=== PATIENT | female | born 1960 | race African-American/Black ===

== ENCOUNTER 2020-01-05 14:01 | IRF | payer MEDICARE, SELFPAY ==
--- NOTE | 2020-01-05 14:52 | ADMGEN ---
This patient, Nick Baker, was admitted to [facility] Room 225-02. Patient/family oriented to hospital policies and general routines including ID bracelet, bed and alarms, visiting hours, pain management, procedures, bathroom and other care routines, personal items, smoking policy, room service/diet, and visiting hours. Valuables list has been completed. Information on how to activate the Rapid Response Team has been discussed. Patient/Family are encouraged to report perceived risks to care and to ask questions if they do not understand what they are told or what they should do.
[2020-01-05 15:25] VITALS: BMI 23.1
[2020-01-05] MEDS: LACTULOSE 20 GM/30 ML UDC 30 GM PO (20:22)
[2020-01-05] MEDS: ATORVASTATIN 40 MG TABLET PO (20:27)
[2020-01-05] MEDS: MEGESTROL ACETATE (*CHEMO) 40 MG TABLET PO (20:28)
[2020-01-05] MEDS: SENNA/DOCUSATE SODIUM TABLET 1 TAB PO (20:28)
[2020-01-05 20:31] VITALS: PULSE 80
[2020-01-05] MEDS: METOPROLOL TARTRATE 25 MG TABLET PO (20:31)
[2020-01-05] MEDS: MIRTAZAPINE 15 MG TABLET PO (20:31)
[2020-01-05] MEDS: MELATONIN 5 MG TABLET PO (20:34)
[2020-01-05 22:00] VITALS: BP 130/53; PULSE 87; RESP 18; TEMP 37.2; O2SAT 97
[2020-01-06 05:14] LABS: Basophils Percent Auto 0.3 % (0.2-1.2); Eosinophils Absolute Auto 0.3 K/mm3 (0-0.3); Eosinophils Percent Auto 2.1 % (0-4.4); Hematocrit 40.3 % (37.0-47.0); Hemoglobin 13.2 g/dL (12.0-15.0); Immature Granulocyte Absolute 0.12 K/mm3 (0.00-0.031); Lymphocytes Absolute Auto 2.91 K/mm3 (0.9-3.2); Lymphocytes Percent Auto 23.2 % (18.3-44.2); Mean Corpuscular HGB Conc 32.8 g/dl (32-36); Mean Corpuscular Hemoglobin 29.3 pg (26-34); Mean Corpuscular Volume 89.4 fl (80-100); Mean Platelet Volume 10.1 fl (7.4-10.4); Monocytes Percent Auto 7.7 % (2.6-8.5); Neutrophils Absolute Auto 8.2 K/mm3 (1.3-6.7); Neutrophils Percent Auto 65.7 % (45.5-73.1); Platelet Count Result 327 k/mm3 (150-375); Red Blood Count 4.51 M/mm3 (4.2-5.4); Red Cell Distribution Width 13.8 % (11.5-14.5); White Blood Count 12.5 K/mm3 (4.5-10.0)
[2020-01-06 05:23] LABS: Blood Urea Nitrogen 12 mg/dL (7-17); Calcium 10.1 mg/dL (8.4-10.2); Carbon Dioxide 27 mmol/L (22-30); Chloride 101 mmol/L (98-107); Estimated CRCL calculation 50 ml/min; Estimated Glomerular Filt Rate > 60; Glucose 112 mg/dL (65-105); Potassium 4.5 mmol/L (3.4-5.0); Sodium 140 mmol/L (137-145)
[2020-01-06 06:00] VITALS: BP 118/56; PULSE 86; RESP 18; TEMP 36.6; O2SAT 99
[2020-01-06] MEDS: MEGESTROL ACETATE (*CHEMO) 40 MG TABLET PO ×2 (09:18→18:16)
[2020-01-06] MEDS: lisinopriL 20 MG TABLET PO (09:18)
[2020-01-06 09:19] VITALS: PULSE 84
[2020-01-06] MEDS: METOPROLOL TARTRATE 25 MG TABLET PO ×2 (09:19→20:36)
[2020-01-06] MEDS: PANTOPRAZOLE 40 MG TABLET PO ×2 (09:21→20:37)
[2020-01-06] MEDS: NICOTINE (*PBKC) 7 MG PATCH 1 PATCH TOPICAL (09:27)
--- NOTE | 2020-01-06 13:00 | WPDREHABHP ---
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 The patient is a 53-year-old right-handed Afro [place] woman with a past medical history of hypertension, hyperlipidemia, coronary artery disease, COPD, prior history of stroke and current smoker who presented to [facility] on December 31, 2019 complaining of a persistent headache for about 10 days and worsening left-sided weakness. 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 Neurology reviewed imaging and disagreed with Radiology reading and possible malignancy in full that it was more likely luxury perfusion. CT of the chest abdomen and the pelvis was obtained in due diligence and was negative for malignancy. Carotid ultrasound demonstrated severe hypoechoic feeling at endarterectomy site with ulcer present and heterogeneous plaque. Vascular surgery was consulted and is in managing her anticoagulation. Repeat head CT showed New hemorrhage as so she was not a candidate for anticoagulation for the carotid thrombus. the plan is for a carotid endarterectomy T in 6 to 8 weeks. She passed a swallowing study is on regular diet with thin liquids. Physical examination continues to reveal left-sided weakness balance impairment decreased loss motor controlled and decreased safety awareness Therapy was initiated at the acute care facility and the patient transferred to us from [facility] on DecemberJuly 17, 2020 on FALLS OR SURGERIES: The patient has had no major surgeries in the 100 days prior to admission. They had falls in the past year. They had no falls with injury in the past year. PAST MEDICAL HISTORY: arthritis hypertension is stroke coronary artery disease PAST SURGICAL HISTORY: abdominal surgery, ovarian cyst drain, bilateral carotid endarterectomy. SOCIAL HISTORY: The patient lives independently in a 1 level apartment with 4 steps down to enter. She was independent with a quad cane prior to this. Her daughter was present for the interview and the patient would like to be able to return home with home health services. She does have family available if needed. She has had several falls but no major surgery in the last 100 days FAMILY HISTORY: probably positive for hyper hypertension coronary artery disease and possibly diabetes PRIOR LEVEL OF FUNCTION: Eating was INDEPENDENT Oral Care was INDEPENDENT Toileting Hygiene was INDEPENDENT Shower/Bathing was INDEPENDENT Upper Body Dressing was INDEPENDENT Lower Body Dressing was INDEPENDENT Donning/[place] Footwear was INDEPENDENT Rolling Left and Right was INDEPENDENT Sit to Lying was INDEPENDENT Lying to Sitting was INDEPENDENT Sit to Stand was INDEPENDENT Bed to Chair Transfers was INDEPENDENT Toilet Transfers was INDEPENDENT Walking was INDEPENDENT 750 feet with quad cane Wheelchair Mobility was NOT APPLICABLE PRIOR TO ADMISSION Stairs were INDEPENDENT CURRENT LEVEL OF FUNCTION: Eating was SET UP ONLY Oral Care was supervision or touch assistance Toileting Hygiene was partial or moderate assistance Shower/Bathing was partial or moderate assistance Upper Body Dressing was partial or moderate assistance Lower Body Dressing was partial or more assistance Donning/[place] Footwear was partial or more assistance Rolling Left and Right was supervision or touch assistance Sit to Lying was supervision or touch assistance Lying to Sitting was supervision or touch assistance Sit to Stand was partial or moderate assistance Bed to Chair Transfers were partial or moderate assistance Toilet
[2020-01-06 14:00] VITALS: BP 134/59; PULSE 78; RESP 16; TEMP 37.1; O2SAT 100
[2020-01-06 20:36] VITALS: PULSE 78
[2020-01-06] MEDS: MELATONIN 5 MG TABLET PO (20:36)
[2020-01-06] MEDS: MIRTAZAPINE 15 MG TABLET PO (20:36)
[2020-01-06] MEDS: ATORVASTATIN 40 MG TABLET PO (20:36)
[2020-01-06] MEDS: SENNA/DOCUSATE SODIUM TABLET 1 TAB PO (20:36)
[2020-01-06 22:00] VITALS: BP 130/48; PULSE 94; RESP 18; TEMP 37.2; O2SAT 100
[2020-01-07 06:00] VITALS: BP 122/46; PULSE 86; RESP 18; TEMP 37.1; O2SAT 100
[2020-01-07] MEDS: ACETAMINOPHEN 325 MG TABLET 650 MG PO (07:06)
[2020-01-07] MEDS: MEGESTROL ACETATE (*CHEMO) 40 MG TABLET PO ×3 (09:06→17:50)
[2020-01-07] MEDS: PANTOPRAZOLE 40 MG TABLET PO ×2 (09:07→20:47)
[2020-01-07 09:10] VITALS: BP 101/74; PULSE 84
--- NOTE | 2020-01-07 13:24 | PCOTNOTE ---
OT treatment attempted. Patient declines stating I have a headache coming on, I have not eaten lunch yet, I need to print this e-mail, and I've already done too much today. Maybe I'll do therapy later . Therapist set up patient's meal, repositioned pt for improved comfort, and adjusted treatment schedule. Nursing is addressing patient's printing needs, Will continue to attempt.
[2020-01-07 14:00] VITALS: BP 143/58; PULSE 84; RESP 18; TEMP 36.2; O2SAT 100
[2020-01-07] MEDS: LORATADINE 10 MG TABLET PO (15:11)
[2020-01-07] MEDS: GUAIFENESIN/DEXTROMETHORPHAN 10 ML UDC PO (15:12)
[2020-01-07 15:38] VITALS: BMI 23.1
--- NOTE | 2020-01-07 16:03 | PCNSR ---
On 01/07/20, the student, Lillie Leon, provided care and completed [facility] documentation on this patient. I have reviewed the student's documentation and agree with the findings.
[2020-01-07 20:47] VITALS: PULSE 98
[2020-01-07] MEDS: METOPROLOL TARTRATE 25 MG TABLET PO (20:47)
[2020-01-07] MEDS: ATORVASTATIN 40 MG TABLET PO (20:47)
[2020-01-07] MEDS: MIRTAZAPINE 15 MG TABLET PO (20:47)
[2020-01-07] MEDS: SENNA/DOCUSATE SODIUM TABLET 1 TAB PO (20:48)
[2020-01-07] MEDS: MELATONIN 5 MG TABLET PO (20:50)
[2020-01-07 22:00] VITALS: BP 145/58; PULSE 87; RESP 18; TEMP 36.3; O2SAT 98
[2020-01-08 06:00] VITALS: BP 140/68; PULSE 84; RESP 18; TEMP 36.2; O2SAT 99
[2020-01-08] MEDS: ACETAMINOPHEN 325 MG TABLET 650 MG PO (06:49)
[2020-01-08] MEDS: LORATADINE 10 MG TABLET PO (08:27)
[2020-01-08 08:28] VITALS: PULSE 84
[2020-01-08] MEDS: PANTOPRAZOLE 40 MG TABLET PO ×2 (08:28→19:59)
[2020-01-08] MEDS: MEGESTROL ACETATE (*CHEMO) 40 MG TABLET PO ×3 (08:28→17:58)
[2020-01-08] MEDS: lisinopriL 20 MG TABLET PO (08:28)
[2020-01-08] MEDS: NICOTINE (*PBKC) 7 MG PATCH 1 PATCH TOPICAL (08:28)
[2020-01-08] MEDS: METOPROLOL TARTRATE 25 MG TABLET PO ×2 (08:28→19:58)
--- NOTE | 2020-01-08 12:49 | WPDNEURORHBP ---
Subjective Date/time seen: 01/08/20 12:49 Interval history: this 59-year-old Afro-[place] woman is here because of right middle cerebral artery territory infarct with the left-sided hemiparesis she does have a carotid stenosis for which the surgeons have recommended carotid endarterectomy in in 6 to 8 weeks post stroke The patient was present in the team conference along with the daughter who is from out of town patient continues to show left hemiparesis along with neglect and visual defect She has been periodically hallucinating while being in the hospital and this was addressed during the team conference in the presence of the daughter who seems like is well read about the stroke and multiple symptoms the patient may have post stroke The patient denies any significant or severe headache nausea vomiting chest pain or shortness of breath she is afebrile however she does have periodic headaches on the right side of the head which I do not believe are of matter of any serious concern at this time Review of Systems Constitutional: Constitutional: Reports no additional constitutional complaints Eyes: Eyes: Reports no additional eye complaints ENT: Reports system reviewed and no additional complaints, except as documented Cardiovascular: Cardiovascular: Reports no additional cardiovascular complaints Respiratory: Respiratory: Reports no additional respiratory complaints Gastrointestinal: Gastrointestinal: Reports no additional gastrointestinal complaints Genitourinary: Genitourinary: Reports no additional female genitourinary complaints Musculoskeletal: Musculoskeletal: Reports no additional musculoskeletal complaints Integumentary/Breasts: Skin/Breast: Reports system reviewed and no additional complaints, except as docu Neurologic: Reports system reviewed and no additional complaints, except as documented Psychiatric: Psychiatric: Reports no additional psychiatric complaints Functional Status Ambulation Ability Ability to Ambulate 10 Feet: Contact Guard Ability to Ambulate 50 Feet With 2 Turns: Contact Guard Ability to Ambulate 150 Feet: Contact Guard Ambulation Assistive Devices: Cane, Small Base Quad Exam Const: General: comfortable and no acute distress HENMT: General nose exam: Normal nares present Mouth: Yes moist mucous membranes Eyes: General: appearance normal, both eyes and all related structures Neck: Neck: supple and no JVD Resp: Effort & Inspection: normal respiratory effort Auscultation: clear to auscultation bilaterally Cardio: Rate: regular rate Rhythm: regular rhythm GI: GI Palp: Yes Soft to palpation Auscultation: normal bowel sounds Skin: General skin exam: normal color and no rashes or lesions noted Neuro: Other: moderate left-sided hemiparesis affecting the activities of daily living however the patient is making excellent progress and showing signs of improvement Extrem: General: normal to inspection Objective Data Vital Signs Vital Signs: Vital Signs - 24 hr 01/07/20 14:00 01/07/20 20:47 01/07/20 22:00 Temperature 36.2 C L 36.3 C L Pulse Rate 84 98 87 Respiratory Rate 18 18 Blood Pressure 143/58 H 145/58 H Pulse Oximetry 100 98 01/08/20 06:00 01/08/20 08:28 Temperature 36.2 C L Pulse Rate 84 84 Respiratory Rate 18 Blood Pressure 140/68 Pulse Oximetry 99 Intake/Output Intake/Output: Intake & Output 01/05/20 01/06/20 01/07/20 01/08/20 23:59 23:59 23:59 23:59 Intake Total 240 600 340 360 Balance 240 600 340 360 Meds/Results Medications: Active Medications Generic Name Dose Route Start Last Admin Trade Name Freq PRN Reason Stop Dose Admin Acetaminophen 650 mg 01/05/20 14:43 01/08/20 06:49 Tylenol Tablet PO 650 mg Q4H PRN Administration Pain (Scale Score 1-3) Hydrocodone Bitart/Acetaminophen 1 tab 01/05/20 14:43 01/08/20 02:54 [place] 5-325 Mg PO 1 tab Q6H PRN Administration Pain>6 Aspirin 81 mg 01/12/20 09:00
[2020-01-08 14:00] VITALS: BP 116/50; PULSE 78; RESP 18; TEMP 36.6; O2SAT 100
--- NOTE | 2020-01-08 15:24 | PCCCNOTE ---
On 01/08/20, the student, [Marco Chan ], provided care and completed [facility] documentation on this patient. I have reviewed the student's documentation and agree with the findings.
--- NOTE | 2020-01-08 16:07 | RPD ---
INDIVIDUALIZED PLAN OF CARE FOR Nick Baker Brief Synthesis of Pre-Admission Screen, Post-Admission Evaluation and Therapy Evaluations: The patient presents to rehab with Subacute right MCA territory infarct. Comorbidities include COPD, hypertension, hyperlipidemia, arthritis.The patient requires physician services for neurology services, medical oversight, and coordination of care. The patient needs physician monitoring and treatment of hypertension, monitoring for adverse reactions to new medications, monitoring of infection, and pain control. The patient requires nursing services for frequent neuro checks, anticoagulation therapy, medication management and education, pressure relief and skin care management, monitoring of labs, and fall/safety precautions. Deficits include:ADLs, Balance, Cognition, Endurance,Mobility, Pain Management, ROM, Safety, Strength, Transfers Certified Court Interpreter/Case Management for: Discharge Planning and Patient/Family Counseling Physical Therapy: 5 days per week for 75 minutes. Treatments may include: Therapeutic Exercise, Gait Training, Neuromuscular Re-education, Transfer Training, Community Reintegration, Bed Mobility, Patient/Family Education, Wheelchair Mobility Group Therapy/Concurrent Therapy Rationales: -Improve attention span during functional activities in a distracted environment. -Enhance problem solving and/or adequate judgment skills during functional activities in a distracted environment. -Promote increased safety awareness in a distracted environment to reduce fall risk with functional tasks, transfers, and ambulation to allow a more safe, self-sufficient return to the home environment. -Improve dynamic balance skills to promote safety and independence with functional activities in a distracted environment for maximum gain. Occupational Therapy: 5 days per week for 75 minutes. Treatments may include: Therapeutic Exercise, Therapeutic Activity, Cognitive Training, Self-Care Transfer Training, Community Reintegration, Home Management, Patient/Family Education, Wheelchair Mobility Training, Energy Conservation Training Group Therapy/Concurrent Therapy Rationales: -Allow therapist to observe and teach generalization and carry-over of skills learned in individual therapy. -Enhance problem solving and sequencing skills during therapeutic activities in a distracted environment. -Promote increased safety awareness in a realistic setting to reduce fall risk with functional tasks due to visual and verbal distractions. -Increase functional level with ADLs, ADL transfers and use of adaptive equipment through therapeutic activities with others while promoting safety to allow a more safe, self-sufficient return home. Speech Therapy: 5 days per week for 30 minutes. Treatments may include: Dysphasia Therapy, Speech/Language/Communication Therapy, Cognitive Training, Patient/Family Education Group Therapy/Concurrent Therapy - Rationale: -Allow therapist to observe and teach generalization and carry-over of skills learned in individual therapy. -Improve comprehension skills with complex or abstract ideas through discussion in a realistic setting. -Enhance problem solving skills with complex issues during activities in a distracted environment. -Promote increased memory skills and concentration in a distracted environment for a safe transition home. -Improve attention and focus with language/communication skills in a realistic and supportive therapeutic setting. -Allow for practice of expression of basic needs and ideas through functional activities with others. Medical Prognosis: Good Anticipated Length of Stay: 12 days Rehab Goals: Eating Goal: 05-Setup or Clean Up Assistance Oral Hygiene Goal: 06-Independent Toileting Hygiene Goal: 06-Independent Shower/Bathe Self Goal: 06-Independent Upper Body Dressing Goal: 06-Independent Lower Body Dressing Goal: 06-Independent Putting On/Taking Off Footwear Goal: 06-Independent R
[2020-01-08 17:05] LABS: Add Urine Microscopic? YES; Appearance Urine Clear (Clear); Bacteria Urine Trace /hpf; Bilirubin Urine Negative (Negative); Blood Urine Negative (Negative); Color Urine Yellow (Yellow); Glucose Urine UA Negative (Negative); Ketones Urine Negative (Negative); Leukocyte Esterase Ur Trace LEU/UL (Negative); Nitrate Urine Negative (Negative); Protein Urine Negative (Negative); RBC Urine 0-2 /hpf (0-2); Specific Grav Ur 1.013 (1.001-1.035); Squamous Epithelial Cell Urine Rare /hpf (Few); Urobilinogen Urine Negative mg/dL (<2.0)
[2020-01-08] MEDS: SENNA/DOCUSATE SODIUM TABLET 1 TAB PO (19:57)
[2020-01-08] MEDS: ATORVASTATIN 40 MG TABLET PO (19:57)
[2020-01-08 19:58] VITALS: PULSE 90
[2020-01-08] MEDS: MIRTAZAPINE 15 MG TABLET PO (19:58)
[2020-01-08] MEDS: MELATONIN 5 MG TABLET PO (20:00)
[2020-01-08 22:00] VITALS: BP 138/52; PULSE 84; RESP 18; TEMP 37; O2SAT 100
[2020-01-09] MEDS: GUAIFENESIN/DEXTROMETHORPHAN 10 ML UDC PO (05:20)
[2020-01-09 06:00] VITALS: BP 118/54; PULSE 87; RESP 20; O2SAT 98
[2020-01-09 08:03] VITALS: PULSE 84
[2020-01-09] MEDS: METOPROLOL TARTRATE 25 MG TABLET PO ×2 (08:03→21:39)
[2020-01-09] MEDS: lisinopriL 20 MG TABLET PO (08:03)
[2020-01-09] MEDS: PANTOPRAZOLE 40 MG TABLET PO ×2 (08:04→21:39)
[2020-01-09] MEDS: LORATADINE 10 MG TABLET PO (08:04)
[2020-01-09] MEDS: MEGESTROL ACETATE (*CHEMO) 40 MG TABLET PO ×3 (08:04→17:10)
[2020-01-09] MEDS: ACETAMINOPHEN 325 MG TABLET 650 MG PO (09:31)
--- NOTE | 2020-01-09 11:18 | WPDNEURORHBP ---
Subjective Date/time seen: 01/09/20 11:18 Interval history: patient is complaining of headache earlier this morning however responded to pain medication and she is doing fairly well Abdiel specifically if she has had migraine-type headache in the past she said yes and the present headache is similar to what she used to have overall there is no change in her mental or neurological status and she is engage in therapy quite well No chest pain no shortness of breath no further neurological complaints no abdominal pain fever chills sore throat Review of Systems Constitutional: Constitutional: Reports no additional constitutional complaints Eyes: Eyes: Reports no additional eye complaints ENT: Reports system reviewed and no additional complaints, except as documented Cardiovascular: Cardiovascular: Reports no additional cardiovascular complaints Respiratory: Respiratory: Reports no additional respiratory complaints Gastrointestinal: Gastrointestinal: Reports no additional gastrointestinal complaints Genitourinary: Genitourinary: Reports no additional female genitourinary complaints Musculoskeletal: Musculoskeletal: Reports no additional musculoskeletal complaints Integumentary/Breasts: Skin/Breast: Reports system reviewed and no additional complaints, except as docu Neurologic: Reports system reviewed and no additional complaints, except as documented Psychiatric: Psychiatric: Reports no additional psychiatric complaints Functional Status Ambulation Ability Ability to Ambulate 10 Feet: Contact Guard Ability to Ambulate 50 Feet With 2 Turns: Contact Guard Ability to Ambulate 150 Feet: Contact Guard Ambulation Assistive Devices: Cane, Small Base Quad Exam Const: General: comfortable and no acute distress HENMT: General nose exam: Normal nares present Mouth: Yes moist mucous membranes Eyes: General: appearance normal, both eyes and all related structures Neck: Neck: supple and no JVD Resp: Effort & Inspection: normal respiratory effort Auscultation: clear to auscultation bilaterally Cardio: Rate: regular rate Rhythm: regular rhythm GI: GI Palp: Yes Soft to palpation Percussion: Yes normal to percussion Auscultation: normal bowel sounds : External Female Exam: normal external appearance Skin: General skin exam: normal color and no rashes or lesions noted Neuro: Other: patient has right hemisphere deficit with the left hemiparesis left-sided neglect as left-sided hemisensory deficit which is slowly improving overall no new neurological findings Extrem: General: normal to inspection Objective Data Vital Signs Vital Signs: Vital Signs - 24 hr 01/08/20 14:00 01/08/20 19:58 01/08/20 22:00 Temperature 36.6 C 37.0 C Pulse Rate 78 90 84 Respiratory Rate 18 18 Blood Pressure 116/50 L 138/52 L Pulse Oximetry 100 100 01/09/20 06:00 01/09/20 08:03 Temperature Pulse Rate 87 84 Respiratory Rate 20 Blood Pressure 118/54 L Pulse Oximetry 98 Intake/Output Intake/Output: Intake & Output 01/06/20 01/07/20 01/08/20 01/09/20 23:59 23:59 23:59 23:59 Intake Total 600 340 840 240 Balance 600 340 840 240 Meds/Results Medications: Active Medications Generic Name Dose Route Start Last Admin Trade Name Freq PRN Reason Stop Dose Admin Acetaminophen 650 mg 01/05/20 14:43 01/09/20 09:31 Tylenol Tablet PO 650 mg Q4H PRN Administration Pain (Scale Score 1-3) Hydrocodone Bitart/Acetaminophen 1 tab 01/05/20 14:43 01/09/20 08:04 [place] 5-325 Mg PO 1 tab Q6H PRN Administration Pain>6 Aspirin 81 mg 01/12/20 09:00 Aspirin Ec PO DAILY MARITA Atorvastatin Calcium 40 mg 01/05/20 21:00 01/08/20 19:57 Lipitor PO 40 mg HS MARITA Administration Guaifenesin/Dextromethorphan 10 ml 01/07/20 14:39 01/09/20 05:20 Robitussin-Dm Syrup PO 10 ml Q4H PRN Administration Cough Lactulose 30 gm 01/05/20 19:22 01/05/20 20:22 Lactulose PO 30 gm
[2020-01-09 14:00] VITALS: BP 119/41; PULSE 86; RESP 18; TEMP 36.2; O2SAT 98
[2020-01-09] MEDS: SENNA/DOCUSATE SODIUM TABLET 1 TAB PO (21:38)
[2020-01-09] MEDS: ATORVASTATIN 40 MG TABLET PO (21:38)
[2020-01-09] MEDS: MELATONIN 5 MG TABLET PO (21:38)
[2020-01-09 21:39] VITALS: PULSE 72
[2020-01-09] MEDS: MIRTAZAPINE 15 MG TABLET PO (21:39)
[2020-01-09 22:00] VITALS: BP 132/47; PULSE 86; RESP 18; TEMP 37; O2SAT 97
[2020-01-10 06:00] VITALS: BP 124/57; PULSE 83; RESP 18; TEMP 36.6; O2SAT 98
[2020-01-10 09:02] VITALS: PULSE 83
[2020-01-10] MEDS: lisinopriL 20 MG TABLET PO (09:02)
[2020-01-10] MEDS: METOPROLOL TARTRATE 25 MG TABLET PO ×2 (09:02→21:50)
[2020-01-10] MEDS: MEGESTROL ACETATE (*CHEMO) 40 MG TABLET PO ×3 (09:02→17:41)
[2020-01-10] MEDS: LORATADINE 10 MG TABLET PO (09:02)
[2020-01-10] MEDS: PANTOPRAZOLE 40 MG TABLET PO ×2 (09:03→21:52)
[2020-01-10 14:00] VITALS: BP 138/60; PULSE 70; RESP 16; TEMP 36.2; O2SAT 100
[2020-01-10] MEDS: ATORVASTATIN 40 MG TABLET PO (21:47)
[2020-01-10] MEDS: SENNA/DOCUSATE SODIUM TABLET 1 TAB PO (21:48)
[2020-01-10] MEDS: MELATONIN 5 MG TABLET PO (21:49)
[2020-01-10 21:50] VITALS: PULSE 76
[2020-01-10] MEDS: MIRTAZAPINE 15 MG TABLET PO (21:51)
[2020-01-10 22:00] VITALS: BP 111/43; PULSE 84; RESP 18; TEMP 36.6; O2SAT 97
[2020-01-11 06:00] VITALS: BP 126/54; PULSE 76; RESP 18; TEMP 36.8; O2SAT 99
[2020-01-11] MEDS: lisinopriL 20 MG TABLET PO (09:32)
[2020-01-11] MEDS: LORATADINE 10 MG TABLET PO (09:33)
[2020-01-11] MEDS: MEGESTROL ACETATE (*CHEMO) 40 MG TABLET PO ×3 (09:33→18:00)
[2020-01-11 09:34] VITALS: PULSE 76
[2020-01-11] MEDS: METOPROLOL TARTRATE 25 MG TABLET PO ×2 (09:34→20:20)
[2020-01-11] MEDS: NICOTINE (*PBKC) 7 MG PATCH 1 PATCH TOPICAL (09:34)
[2020-01-11] MEDS: PANTOPRAZOLE 40 MG TABLET PO ×2 (09:34→20:20)
--- NOTE | 2020-01-11 13:56 | PCDIET ---
Nutrition Follow-Up Complete: Undesirable food choices related to dx of CVA, CAD, and HTN, as evidenced by pt's statement of foods eaten at home and desire for convienvce foods. Pt will consume greater than 75% of all meals and supplemental drinks. Goal met. Pt has consumed 75-100% of all meals. Nutrition recommendation: Recommend continuation of Heart Healthy diet. Recommend changing Ensure Enlive order to once per day, as requested by pt. Last recorded weight is 55.6 kg. Bowel Motility: +BM 01/07 Labs Reviewed:No new hematology or chemistry labs since 01/06. Urine WBC level 4-6 on 01/11 Meds Noted:Senoket, [place], protonix, lipitor, lopressor Additional Notes: Pt states appetite is worse but has been eating 75-100% of meals. Said she this morning she ate cheerios with toast (butter, jelly), and donuts brought in by family. She requested the Enlive be sent 1x/day as she can only drink one. Her family is also occasionally sending Boost. States she is still nauseous when she gets a headache and bends down. States she is still constipated. Noted that last administration of senoket 01/10. Will monitor intakes and labs. Will follow up in 5 days.
[2020-01-11 14:00] VITALS: BP 115/48; PULSE 73; RESP 18; TEMP 36.2; O2SAT 99
--- NOTE | 2020-01-11 14:51 | PCNSR ---
On 01/11/20, the student,Lillie Leon, provided care and completed [facility] documentation on this patient. I have reviewed the student's documentation and agree with the findings.
--- NOTE | 2020-01-11 15:08 | WPDNEURORHBP ---
Subjective Date/time seen: 01/11/20 15:08 Interval history: patient is here because of acute/subacute right middle cerebral artery territory infarct with right-sided significant carotid stenosis and left-sided hemiparesis according to the vascular surgeon the patient will need roughly about 6 to 8 weeks from the time of the stroke right-sided carotid endarterectomy Patient is overall improving as for as the left-sided neglect left-sided hemiparesis and left-sided visual field defect is concerned she denies any headache chest pain shortness of breath nausea vomiting abdominal pain fever chills or sore throat Review of Systems Constitutional: Constitutional: Reports no additional constitutional complaints Eyes: Eyes: Reports no additional eye complaints ENT: Reports system reviewed and no additional complaints, except as documented Cardiovascular: Cardiovascular: Reports no additional cardiovascular complaints Respiratory: Respiratory: Reports no additional respiratory complaints Gastrointestinal: Gastrointestinal: Reports no additional gastrointestinal complaints Genitourinary: Genitourinary: Reports no additional female genitourinary complaints Musculoskeletal: Musculoskeletal: Reports no additional musculoskeletal complaints Integumentary/Breasts: Skin/Breast: Reports system reviewed and no additional complaints, except as docu Neurologic: Reports system reviewed and no additional complaints, except as documented Psychiatric: Psychiatric: Reports no additional psychiatric complaints Functional Status Ambulation Ability Ability to Ambulate 10 Feet: Standby Assistance Ability to Ambulate 50 Feet With 2 Turns: Contact Guard Ability to Ambulate 150 Feet: Contact Guard Ambulation Assistive Devices: Cane, Small Base Quad Transfers Ability Ability to Transfer In/Out of Chair: Contact Guard Exam Const: General: comfortable and no acute distress HENMT: General nose exam: Normal nares present Mouth: Yes moist mucous membranes Eyes: General: appearance normal, both eyes and all related structures Neck: Neck: supple and no JVD Resp: Effort & Inspection: normal respiratory effort Auscultation: clear to auscultation bilaterally Cardio: Rate: regular rate Rhythm: regular rhythm GI: GI Palp: Yes Soft to palpation Auscultation: normal bowel sounds Skin: General skin exam: normal color and no rashes or lesions noted Neuro: Other: patient's remains awake alert well Elizabeth to time present% relatively intact speech and language functions 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 and left-sided hemiparesis and neglect which is slowly improving Objective Data Vital Signs Vital Signs: Vital Signs - 24 hr 01/10/20 21:50 01/10/20 22:00 01/11/20 06:00 Temperature 36.6 C 36.8 C Pulse Rate 76 84 76 Respiratory Rate 18 18 Blood Pressure 111/43 L 126/54 L Pulse Oximetry 97 99 01/11/20 09:34 Temperature Pulse Rate 76 Respiratory Rate Blood Pressure Pulse Oximetry Intake/Output Intake/Output: Intake & Output 01/08/20 01/09/20 01/10/20 01/11/20 23:59 23:59 23:59 23:59 Intake Total 840 1020 960 120 Balance 840 1020 960 120 Meds/Results Medications: Active Medications Generic Name Dose Route Start Last Admin Trade Name Freq PRN Reason Stop Dose Admin Acetaminophen 650 mg 01/05/20 14:43 01/09/20 09:31 Tylenol Tablet PO 650 mg Q4H PRN Administration Pain (Scale Score 1-3) Hydrocodone Bitart/Acetaminophen 1 tab 01/05/20 14:43 01/11/20 09:38 [place] 5-325 Mg PO 1 tab Q6H PRN Administration Pain>6 Aspirin 81 mg 01/12/20 09:00 Aspirin Ec PO DAILY MARITA Atorvastatin Calcium 40 mg 01/05/20 21:00 01/10/20 21:47 Lipitor PO 40 mg HS MARITA Administration Guaifenesin/Dextromethorphan 10 ml 01/07/20 14:39 01/09/20 05:20 Robitussin-Dm Syrup PO 10 ml Q4H PRN Administration Cough Lactulose 30 gm 01/05/20 19:22 01/05/20 20:22 Lactulose PO 30 gm QA
[2020-01-11] MEDS: ATORVASTATIN 40 MG TABLET PO (20:19)
[2020-01-11 20:20] VITALS: PULSE 73
[2020-01-11] MEDS: MIRTAZAPINE 15 MG TABLET PO (20:20)
[2020-01-11] MEDS: SENNA/DOCUSATE SODIUM TABLET 1 TAB PO (20:20)
[2020-01-11] MEDS: MELATONIN 5 MG TABLET PO (20:20)
[2020-01-11 22:00] VITALS: BP 124/64; PULSE 78; RESP 18; TEMP 36.6; O2SAT 98
[2020-01-12 06:00] VITALS: BP 118/68; PULSE 72; RESP 18; TEMP 36.5; O2SAT 99
[2020-01-12] MEDS: PANTOPRAZOLE 40 MG TABLET PO ×2 (09:15→20:56)
[2020-01-12] MEDS: METOPROLOL TARTRATE 25 MG TABLET PO ×2 (09:35→20:56)
[2020-01-12] MEDS: ASPIRIN 81 MG ENTERIC TABLET PO (09:35)
[2020-01-12] MEDS: MEGESTROL ACETATE (*CHEMO) 40 MG TABLET PO ×3 (09:35→16:36)
[2020-01-12] MEDS: lisinopriL 20 MG TABLET PO (09:35)
[2020-01-12] MEDS: LORATADINE 10 MG TABLET PO (09:35)
[2020-01-12] MEDS: ACETAMINOPHEN 325 MG TABLET 650 MG PO (09:40)
[2020-01-12 14:00] VITALS: BP 114/51; PULSE 78; RESP 18; TEMP 36.5; O2SAT 99
[2020-01-12 20:56] VITALS: PULSE 78
[2020-01-12] MEDS: MELATONIN 5 MG TABLET PO (20:56)
[2020-01-12] MEDS: MIRTAZAPINE 15 MG TABLET PO (20:56)
[2020-01-12] MEDS: SENNA/DOCUSATE SODIUM TABLET 1 TAB PO (20:56)
[2020-01-12] MEDS: ATORVASTATIN 40 MG TABLET PO (20:56)
[2020-01-12 22:00] VITALS: BP 103/77; PULSE 86; RESP 18; TEMP 36.5; O2SAT 99
[2020-01-13] VITALS (7 sets, daily range): BP systolic 117–127; BP diastolic 32–76; PULSE 73–80; RESP 17–18; TEMP 36.1–36.3; O2SAT 98–100
[2020-01-13 05:40] LABS: Basophils Percent Auto 0.4 % (0.2-1.2); Eosinophils Absolute Auto 0.2 K/mm3 (0-0.3); Eosinophils Percent Auto 1.6 % (0-4.4); Hematocrit 35.8 % (37.0-47.0); Immature Granulocyte Absolute 0.05 K/mm3 (0.00-0.031); Immature Granulocyte Percent A 0.5 % (0-0.5); Lymphocytes Percent Auto 24.9 % (18.3-44.2); Mean Corpuscular HGB Conc 33.5 g/dl (32-36); Mean Corpuscular Hemoglobin 29.3 pg (26-34); Mean Corpuscular Volume 87.5 fl (80-100); Mean Platelet Volume 9.3 fl (7.4-10.4); Monocytes Absolute Auto 0.4 K/mm3 (0.1-0.6); Monocytes Percent Auto 3.6 % (2.6-8.5); Neutrophils Absolute Auto 6.9 K/mm3 (1.3-6.7); Platelet Count Result 351 k/mm3 (150-375); Red Blood Count 4.09 M/mm3 (4.2-5.4); Red Cell Distribution Width 13.2 % (11.5-14.5); White Blood Count 10.1 K/mm3 (4.5-10.0)
[2020-01-13 05:50] LABS: Blood Urea Nitrogen 12 mg/dL (7-17); Calcium 9.5 mg/dL (8.4-10.2); Carbon Dioxide 27 mmol/L (22-30); Chloride 101 mmol/L (98-107); Estimated CRCL calculation 45 ml/min; Estimated Glomerular Filt Rate > 60; Glucose 137 mg/dL (65-105); Sodium 138 mmol/L (137-145)
[2020-01-13] MEDS: ASPIRIN 81 MG ENTERIC TABLET PO (09:28)
[2020-01-13] MEDS: lisinopriL 20 MG TABLET PO (09:29)
[2020-01-13] MEDS: LORATADINE 10 MG TABLET PO (09:29)
[2020-01-13] MEDS: MEGESTROL ACETATE (*CHEMO) 40 MG TABLET PO ×3 (09:29→17:47)
[2020-01-13] MEDS: METOPROLOL TARTRATE 25 MG TABLET PO ×2 (09:29→20:53)
[2020-01-13] MEDS: PANTOPRAZOLE 40 MG TABLET PO ×2 (09:29→20:53)
--- NOTE | 2020-01-13 12:00 | WPDNEURORHBP ---
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 she also has significant right-sided carotid stenosis for which the plan from the vascular surgeon is to do a surgery about 6 to 8 weeks from the time of she has suffered from stroke the patient also had the hemorrhagic component to her stroke so anticoagulation is not warranted Review of Systems Constitutional: Constitutional: Reports no additional constitutional complaints Eyes: Eyes: Reports no additional eye complaints ENT: Reports system reviewed and no additional complaints, except as documented Cardiovascular: Cardiovascular: Reports no additional cardiovascular complaints Respiratory: Respiratory: Reports no additional respiratory complaints Gastrointestinal: Gastrointestinal: Reports no additional gastrointestinal complaints Genitourinary: Genitourinary: Reports no additional female genitourinary complaints Musculoskeletal: Musculoskeletal: Reports no additional musculoskeletal complaints Integumentary/Breasts: Skin/Breast: Reports system reviewed and no additional complaints, except as docu Neurologic: Reports system reviewed and no additional complaints, except as documented Psychiatric: Psychiatric: Reports no additional psychiatric complaints Functional Status Ambulation Ability Ability to Ambulate 10 Feet: Contact Guard Ability to Ambulate 50 Feet With 2 Turns: Contact Guard Ability to Ambulate 150 Feet: Contact Guard Ambulation Assistive Devices: Cane, Small Base Quad Transfers Ability Ability to Transfer In/Out of Chair: Contact Guard Exam Const: General: comfortable and no acute distress HENMT: General nose exam: Normal nares present Mouth: Yes moist mucous membranes Eyes: General: appearance normal, both eyes and all related structures Other: left-sided visual field defect Neck: Neck: supple and no JVD Resp: Auscultation: clear to auscultation bilaterally Cardio: Rate: regular rate Rhythm: regular rhythm GI: GI Palp: Yes Soft to palpation Auscultation: normal bowel sounds : External Female Exam: normal external appearance Skin: General skin exam: normal color and no rashes or lesions noted Neuro: Other: patient is awake and alert well oriented in time place and person with fluent speech showing signs of the right hemispheric deficit with the neglect left-sided hemiparesis and trouble performing the activities of daily living however she is clearly improving but she needs counseling because of underlying situational depression related to having stroke Extrem: General: normal to inspection Objective Data Vital Signs Vital Signs: Vital Signs - 24 hr 01/12/20 14:00 01/12/20 20:56 01/12/20 22:00 Temperature 36.5 C 36.5 C Pulse Rate 78 78 86 Respiratory Rate 18 18 Blood Pressure 114/51 L 103/77 Pulse Oximetry 99 99 01/13/20 06:00 01/13/20 08:00 01/13/20 09:29 Temperature 36.3 C L Pulse Rate 78 78 78 Respiratory Rate 18 18 Blood Pressure 127/76 Pulse Oximetry 99 99 01/13/20 10:32 Temperature 36.3 C L Pulse Rate Respiratory Rate Blood Pressure Pulse Oximetry Intake/Output Intake/Output: Intake & Output 01/10/20 01/11/20 01/12/20 01/13/20 23:59 23:59 23:59 23:59 Intake Total 960 120 480 120 Balance 960 120 480 120 Meds/Results Medications: Active Medications Generic Name Dose Route Start Last Admin Trade Name Freq PRN Reason Stop Dose Admin Acetaminophen 650 mg 01/05/20 14:43 01/12/20 09:40 Tylenol Tablet PO 650 mg Q4H PRN Administration Pain (Scale Score 1-3) Hydrocodone Bitart/Acetaminophen 1 tab 01/05/20 14:43 01/13/20 09:32 [place] 5-325 Mg PO 1 tab Q6H PRN Administration Pain>6 Aspirin 81 mg 01/12/20 09:00 01/13/20 09:28 Aspirin Ec PO 81 mg
--- NOTE | 2020-01-13 14:33 | WPDNEURORHBP ---
Subjective Date/time seen: 01/13/20 14:33 Interval history: this is a 59-year-old the a from recurrent woman who has had bilateral carotid endarterectomies in the remote past is recuperating here with the right hemispheric stroke with rather significant left-sided hemiparesis and also has a significant right carotid artery stenosis for which a surgery will be planned about 6 to 8 weeks from the time of the stroke She is doing fairly well not as depressed as before engage in therapy and denies any further complaints Review of Systems Constitutional: Constitutional: Reports no additional constitutional complaints Eyes: Eyes: Reports no additional eye complaints ENT: Reports system reviewed and no additional complaints, except as documented Cardiovascular: Cardiovascular: Reports no additional cardiovascular complaints Respiratory: Respiratory: Reports no additional respiratory complaints Gastrointestinal: Gastrointestinal: Reports no additional gastrointestinal complaints Genitourinary: Genitourinary: Reports no additional female genitourinary complaints Musculoskeletal: Musculoskeletal: Reports no additional musculoskeletal complaints Integumentary/Breasts: Skin/Breast: Reports system reviewed and no additional complaints, except as docu Neurologic: Reports system reviewed and no additional complaints, except as documented Psychiatric: Psychiatric: Reports no additional psychiatric complaints Functional Status Ambulation Ability Ability to Ambulate 10 Feet: Contact Guard Ability to Ambulate 50 Feet With 2 Turns: Contact Guard Ability to Ambulate 150 Feet: Contact Guard Ambulation Assistive Devices: Cane, Small Base Quad Transfers Ability Ability to Transfer In/Out of Chair: Contact Guard Exam Const: General: comfortable and no acute distress HENMT: General nose exam: Normal nares present Mouth: Yes moist mucous membranes Eyes: General: appearance normal, both eyes and all related structures Neck: Neck: supple and no JVD Resp: Effort & Inspection: normal respiratory effort Auscultation: clear to auscultation bilaterally Cardio: Rate: regular rate Rhythm: regular rhythm GI: GI Palp: Yes Soft to palpation Auscultation: normal bowel sounds Skin: General skin exam: normal color and no rashes or lesions noted Neuro: Other: patient is awake and alert and well oriented in time place and person with normal speech language function however left-sided hemiparesis of moderately severe degree and 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 she is slowly improving however Extrem: General: normal to inspection Objective Data Vital Signs Vital Signs: Vital Signs - 24 hr 01/12/20 20:56 01/12/20 22:00 01/13/20 06:00 Temperature 36.5 C 36.3 C L Pulse Rate 78 86 78 Respiratory Rate 18 18 Blood Pressure 103/77 127/76 Pulse Oximetry 99 99 01/13/20 08:00 01/13/20 09:29 01/13/20 10:32 Temperature 36.3 C L Pulse Rate 78 78 Respiratory Rate 18 Blood Pressure Pulse Oximetry 99 Intake/Output Intake/Output: Intake & Output 01/10/20 01/11/20 01/12/20 01/13/20 23:59 23:59 23:59 23:59 Intake Total 960 120 480 240 Balance 960 120 480 240 Meds/Results Medications: Active Medications Generic Name Dose Route Start Last Admin Trade Name Freq PRN Reason Stop Dose Admin Acetaminophen 650 mg 01/05/20 14:43 01/12/20 09:40 Tylenol Tablet PO 650 mg Q4H PRN Administration Pain (Scale Score 1-3) Hydrocodone Bitart/Acetaminophen 1 tab 01/05/20 14:43 01/13/20 09:32 [place] 5-325 Mg PO 1 tab Q6H PRN Administration Pain>6 Aspirin 81 mg 01/12/20 09:00 01/13/20 09:28 Aspirin Ec PO 81 mg DAILY MARITA Administration Atorvastatin Calcium 40 mg 01/05/20 21:00 01/12/20 20:56 Lipitor PO 40 mg HS MARITA Administration Guaifenesin/Dextromethorphan 10 ml 01/07/20 14:39 01/09/20 05:20 Robitussin-Dm Syrup PO 10 ml Q4H PRN Administration Cough Lactulo
[2020-01-13] MEDS: SENNA/DOCUSATE SODIUM TABLET 1 TAB PO (20:53)
[2020-01-13] MEDS: MIRTAZAPINE 15 MG TABLET PO (20:53)
[2020-01-13] MEDS: ACETAMINOPHEN 325 MG TABLET 650 MG PO (20:54)
[2020-01-13] MEDS: MELATONIN 5 MG TABLET PO (20:54)
[2020-01-13] MEDS: LACTULOSE 20 GM/30 ML UDC 30 GM PO (21:38)
[2020-01-14 06:00] VITALS: BP 116/55; PULSE 71; RESP 18; TEMP 36.3; O2SAT 100
[2020-01-14] MEDS: PANTOPRAZOLE 40 MG TABLET PO ×2 (08:39→20:17)
[2020-01-14] MEDS: lisinopriL 20 MG TABLET PO (08:39)
[2020-01-14] MEDS: MEGESTROL ACETATE (*CHEMO) 40 MG TABLET PO ×3 (08:39→17:08)
[2020-01-14] MEDS: METOPROLOL TARTRATE 25 MG TABLET PO ×2 (08:39→20:17)
[2020-01-14] MEDS: ASPIRIN 81 MG ENTERIC TABLET PO (08:39)
[2020-01-14 14:00] VITALS: BP 114/48; PULSE 75; RESP 16; TEMP 36.2; O2SAT 98
[2020-01-14 20:17] VITALS: PULSE 76
[2020-01-14] MEDS: ATORVASTATIN 40 MG TABLET PO (20:17)
[2020-01-14] MEDS: SENNA/DOCUSATE SODIUM TABLET 1 TAB PO (20:17)
[2020-01-14] MEDS: MELATONIN 5 MG TABLET PO (20:17)
[2020-01-14] MEDS: MIRTAZAPINE 15 MG TABLET PO (20:17)
[2020-01-14 22:00] VITALS: BP 131/47; PULSE 118; RESP 18; TEMP 37.1; O2SAT 100
[2020-01-15] VITALS (8 sets, daily range): BP systolic 117–128; BP diastolic 54–60; PULSE 65–118; RESP 16–18; TEMP 36.1–36.9; O2SAT 100
[2020-01-15] MEDS: ASPIRIN 81 MG ENTERIC TABLET PO (08:56)
[2020-01-15] MEDS: METOPROLOL TARTRATE 25 MG TABLET PO ×2 (08:56→20:56)
[2020-01-15] MEDS: PANTOPRAZOLE 40 MG TABLET PO ×2 (08:56→20:56)
[2020-01-15] MEDS: lisinopriL 20 MG TABLET PO (08:57)
[2020-01-15] MEDS: MEGESTROL ACETATE (*CHEMO) 40 MG TABLET PO ×3 (08:57→17:38)
--- NOTE | 2020-01-15 14:22 | WPDNEURORHBP ---
Subjective Date/time seen: 01/15/20 14:22 Interval history: this 59-year-old woman is here with the left hemiparesis secondary to rather it hemispheric stroke related to significant right-sided carotid stenosis she is doing fairly well her depression is better controlled and she is communicative and following all commands and engage in therapy She denies any headache double vision blurred vision chest pain shortness of breath any neurological symptoms fever chills abdominal pain diarrhea vomiting or deny to urinary complaints Review of Systems Constitutional: Constitutional: Reports no additional constitutional complaints Eyes: Eyes: Reports no additional eye complaints ENT: Reports system reviewed and no additional complaints, except as documented Cardiovascular: Cardiovascular: Reports no additional cardiovascular complaints Respiratory: Respiratory: Reports no additional respiratory complaints Gastrointestinal: Gastrointestinal: Reports no additional gastrointestinal complaints Genitourinary: Genitourinary: Reports no additional female genitourinary complaints Musculoskeletal: Musculoskeletal: Reports no additional musculoskeletal complaints Integumentary/Breasts: Skin/Breast: Reports system reviewed and no additional complaints, except as docu Neurologic: Reports system reviewed and no additional complaints, except as documented Psychiatric: Psychiatric: Reports no additional psychiatric complaints Functional Status Ambulation Ability Ability to Ambulate 10 Feet: Standby Assistance Ability to Ambulate 50 Feet With 2 Turns: Contact Guard Ability to Ambulate 150 Feet: Contact Guard Ambulation Assistive Devices: Cane, Small Base Quad Transfers Ability Ability to Transfer In/Out of Chair: Contact Guard Exam Const: General: comfortable and no acute distress HENMT: General nose exam: Normal nares present Mouth: Yes moist mucous membranes Eyes: General: appearance normal, both eyes and all related structures Neck: Neck: supple and no JVD Resp: Effort & Inspection: normal respiratory effort Auscultation: clear to auscultation bilaterally Cardio: Rate: regular rate Rhythm: regular rhythm GI: GI Palp: Yes Soft to palpation Auscultation: normal bowel sounds Skin: General skin exam: normal color and no rashes or lesions noted Neuro: Other: patient is awake and alert well oriented time place person she was present for the team conference the left-sided hemiparesis improving Objective Data Vital Signs Vital Signs: Vital Signs - 24 hr 01/14/20 20:17 01/14/20 22:00 01/15/20 00:06 Temperature 37.1 C Pulse Rate 76 118 H 118 H Respiratory Rate 18 18 Blood Pressure 131/47 L Pulse Oximetry 100 100 01/15/20 06:00 01/15/20 08:00 01/15/20 08:56 Temperature 36.9 C Pulse Rate 96 96 96 Respiratory Rate 18 18 Blood Pressure 128/54 L Pulse Oximetry 100 100 Intake/Output Intake/Output: Intake & Output 01/12/20 01/13/20 01/14/20 01/15/20 23:59 23:59 23:59 23:59 Intake Total 480 360 720 240 Balance 480 360 720 240 Meds/Results Medications: Active Medications Generic Name Dose Route Start Last Admin Trade Name Freq PRN Reason Stop Dose Admin Acetaminophen 650 mg 01/05/20 14:43 01/13/20 20:54 Tylenol Tablet PO 650 mg Q4H PRN Administration Pain (Scale Score 1-3) Hydrocodone Bitart/Acetaminophen 1 tab 01/05/20 14:43 01/15/20 06:33 [place] 5-325 Mg PO 1 tab Q6H PRN Administration Pain>6 Aspirin 81 mg 01/12/20 09:00 01/15/20 08:56 Aspirin Ec PO 81 mg DAILY MARITA Administration Atorvastatin Calcium 40 mg 01/05/20 21:00 01/14/20 20:17 Lipitor PO 40 mg HS MARITA Administration Guaifenesin/Dextromethorphan 10 ml 01/07/20 14:39 01/09/20 05:20 Robitussin-Dm Syrup PO 10 ml Q4H PRN Administration Cough Lactulose 30 gm 01/05/20 19:22 01/13/20 21:38 Lactulose PO 30 gm QAM PRN Administration Constipation Mireya
[2020-01-15] MEDS: MELATONIN 5 MG TABLET PO (20:55)
[2020-01-15] MEDS: SENNA/DOCUSATE SODIUM TABLET 1 TAB PO (20:56)
[2020-01-15] MEDS: MIRTAZAPINE 15 MG TABLET PO (20:56)
[2020-01-15] MEDS: ATORVASTATIN 40 MG TABLET PO (20:57)
[2020-01-16 06:00] VITALS: BP 134/68; PULSE 74; RESP 18; TEMP 36.6; O2SAT 100
[2020-01-16] MEDS: ASPIRIN 81 MG ENTERIC TABLET PO (08:03)
[2020-01-16 08:04] VITALS: PULSE 80
[2020-01-16] MEDS: MEGESTROL ACETATE (*CHEMO) 40 MG TABLET PO ×3 (08:04→16:40)
[2020-01-16] MEDS: METOPROLOL TARTRATE 25 MG TABLET PO ×2 (08:04→20:46)
[2020-01-16] MEDS: PANTOPRAZOLE 40 MG TABLET PO ×2 (08:04→20:46)
[2020-01-16] MEDS: lisinopriL 20 MG TABLET PO (08:05)
--- NOTE | 2020-01-16 12:34 | PCDIET ---
Nutrition Follow-Up Complete: Undesirable food choices related to dx of CVA, CAD, and HTN, as evidenced by pt's statement of foods eaten at home and desire for convienvce foods. Pt will consume greater than 75% of all meals and supplemental drinks. Goal partially met. Pt's average meal consumption is at 67% over past 13 meals. Nutrition recommendation: Recommend change of diet order to Low Sodium (2gm) to allow pt a little more variety of food to help her meet her nutritional needs. Recommend continuation of Enlive 1x/day. Last recorded weight is 55.6 kg. Bowel Motility:+BM 01/14 Labs Reviewed:Last labs recorded from 01/13 - Glu(137), Na(138) Meds Noted:Megace, prinivil, lopressor, protonix Additional Notes: Pt sates nausea is gone and appetite is better. So far today has had toast, scrambled eggs, Pepsi, chips and candy. Will monitor intakes and labs. Will follow up in 5 days.
--- NOTE | 2020-01-16 13:15 | PCNSR ---
On 01/16/20, the student, Lillie Leon, provided care and completed [facility] documentation on this patient. I have reviewed the student's documentation and agree with the findings.
[2020-01-16 14:00] VITALS: BP 119/45; PULSE 84; RESP 18; TEMP 36.4; O2SAT 100
--- NOTE | 2020-01-16 14:17 | WPDNEURORHBP ---
Subjective Date/time seen: 01/16/20 14:17 Interval history: this 59-year-old woman is here after having had right hemispheric stroke which has left her with the left-sided visual field defect left-sided neglect and left-sided hemiparesis she is asking when she will be able to drive and I told her very politely that at least not in the rehab future while she is recuperating from the stroke She is doing fairly well engage in therapy motivated and wants to get better she will have to have right-sided carotid endarterectomy done roughly about 6 to 8 week post discharge No new neurological symptoms no headaches no chest pain no shortness of breath no diarrhea abdominal pain vomiting fever chills or sore throat Review of Systems Review of Systems: All systems reviewed & are unremarkable except as noted in HPI and below Functional Status Ambulation Ability Ability to Ambulate 10 Feet: Standby Assistance Ability to Ambulate 50 Feet With 2 Turns: Standby Assistance Ability to Ambulate 150 Feet: Contact Guard Ambulation Assistive Devices: Cane, Small Base Quad Transfers Ability Ability to Transfer In/Out of Chair: Standby Assistance Exam Const: General: comfortable and no acute distress HENMT: General nose exam: Normal nares present Mouth: Yes moist mucous membranes Eyes: General: appearance normal, both eyes and all related structures Other: left-sided neglect Neck: Neck: supple and no JVD Resp: Effort & Inspection: normal respiratory effort Auscultation: clear to auscultation bilaterally Cardio: Rate: regular rate Rhythm: regular rhythm GI: GI Palp: Yes Soft to palpation Auscultation: normal bowel sounds Skin: General skin exam: normal color and no rashes or lesions noted Neuro: Other: patient is awake and alert will going to time place and person is speech language functions are normal she does have a left-sided neglect and left-sided visual field defect along with the moderately severe left-sided hemiparesis although she is [place] Extrem: General: normal to inspection Objective Data Vital Signs Vital Signs: Vital Signs - 24 hr 01/15/20 19:02 01/15/20 20:56 01/15/20 22:00 Temperature 36.8 C Pulse Rate 78 65 84 Respiratory Rate 16 18 Blood Pressure 125/60 Pulse Oximetry 100 100 01/16/20 06:00 01/16/20 08:04 Temperature 36.6 C Pulse Rate 74 80 Respiratory Rate 18 Blood Pressure 134/68 Pulse Oximetry 100 Intake/Output Intake/Output: Intake & Output 01/13/20 01/14/20 01/15/20 01/16/20 23:59 23:59 23:59 23:59 Intake Total 360 720 720 120 Balance 360 720 720 120 Meds/Results Medications: Active Medications Generic Name Dose Route Start Last Admin Trade Name Freq PRN Reason Stop Dose Admin Acetaminophen 650 mg 01/05/20 14:43 01/13/20 20:54 Tylenol Tablet PO 650 mg Q4H PRN Administration Pain (Scale Score 1-3) Hydrocodone Bitart/Acetaminophen 1 tab 01/05/20 14:43 01/16/20 07:30 [place] 5-325 Mg PO 1 tab Q6H PRN Administration Pain>6 Aspirin 81 mg 01/12/20 09:00 01/16/20 08:03 Aspirin Ec PO 81 mg DAILY MARITA Administration Atorvastatin Calcium 40 mg 01/05/20 21:00 01/15/20 20:57 Lipitor PO 40 mg HS MARITA Administration Guaifenesin/Dextromethorphan 10 ml 01/07/20 14:39 01/09/20 05:20 Robitussin-Dm Syrup PO 10 ml Q4H PRN Administration Cough Lactulose 30 gm 01/05/20 19:22 01/13/20 21:38 Lactulose PO 30 gm QAM PRN Administration Constipation Lisinopril 20 mg 01/06/20 09:00 01/16/20 08:05 Prinivil PO 20 mg DAILY MARITA Administration Megestrol Acetate 40 mg 01/05/20 17:00 01/16/20 13:17 Megace PO 40 mg TID MARITA Administration Melatonin 5 mg 01/05/20 21:00 01/15/20 20:55 Melatonin PO 5 mg HS MARITA Administration Metoprolol Tartrate 25 mg 01/05/20 21:00 01/16/20 08:04 Lopressor PO 25 mg Q12HR MARITA Administration Mirtazapine 15 mg 01/05/20 21:00
[2020-01-16 20:46] VITALS: PULSE 88
[2020-01-16] MEDS: ATORVASTATIN 40 MG TABLET PO (20:46)
[2020-01-16] MEDS: MIRTAZAPINE 15 MG TABLET PO (20:46)
[2020-01-16] MEDS: MELATONIN 5 MG TABLET PO (20:47)
[2020-01-16] MEDS: SENNA/DOCUSATE SODIUM TABLET 1 TAB PO (20:48)
[2020-01-16 22:00] VITALS: BP 148/60; PULSE 82; RESP 18; TEMP 36.6; O2SAT 95
[2020-01-17 06:00] VITALS: BP 134/65; PULSE 76; RESP 16; TEMP 36.6; O2SAT 100
[2020-01-17] MEDS: ASPIRIN 81 MG ENTERIC TABLET PO (08:12)
[2020-01-17 08:13] VITALS: PULSE 75
[2020-01-17] MEDS: MEGESTROL ACETATE (*CHEMO) 40 MG TABLET PO ×3 (08:13→17:00)
[2020-01-17] MEDS: METOPROLOL TARTRATE 25 MG TABLET PO ×2 (08:13→21:14)
[2020-01-17] MEDS: lisinopriL 20 MG TABLET PO (08:13)
[2020-01-17] MEDS: PANTOPRAZOLE 40 MG TABLET PO ×2 (08:13→21:14)
[2020-01-17 14:00] VITALS: BP 100/44; PULSE 50; RESP 18; TEMP 36.9; O2SAT 96
[2020-01-17 21:14] VITALS: PULSE 80
[2020-01-17] MEDS: MIRTAZAPINE 15 MG TABLET PO (21:14)
[2020-01-17] MEDS: MELATONIN 5 MG TABLET PO (21:14)
[2020-01-17] MEDS: SENNA/DOCUSATE SODIUM TABLET 1 TAB PO (21:14)
[2020-01-17] MEDS: ATORVASTATIN 40 MG TABLET PO (21:15)
[2020-01-17] MEDS: ACETAMINOPHEN 325 MG TABLET 650 MG PO (21:17)
[2020-01-17 22:00] VITALS: BP 128/62; PULSE 72; RESP 18; TEMP 36.3; O2SAT 100
[2020-01-18 06:00] VITALS: BP 105/68; PULSE 72; RESP 18; TEMP 36.6; O2SAT 99
[2020-01-18] MEDS: MEGESTROL ACETATE (*CHEMO) 40 MG TABLET PO ×3 (08:36→17:21)
[2020-01-18] MEDS: lisinopriL 20 MG TABLET PO (08:37)
[2020-01-18] MEDS: PANTOPRAZOLE 40 MG TABLET PO ×2 (08:37→20:18)
[2020-01-18] MEDS: ASPIRIN 81 MG ENTERIC TABLET PO (08:37)
[2020-01-18 08:38] VITALS: PULSE 72
[2020-01-18] MEDS: METOPROLOL TARTRATE 25 MG TABLET PO ×2 (08:38→20:17)
[2020-01-18 14:00] VITALS: BP 110/46; PULSE 70; RESP 16; TEMP 36.4; O2SAT 100
[2020-01-18 20:00] VITALS: PULSE 74; RESP 18; O2SAT 100
[2020-01-18 20:17] VITALS: PULSE 70
[2020-01-18] MEDS: ATORVASTATIN 40 MG TABLET PO (20:17)
[2020-01-18] MEDS: SENNA/DOCUSATE SODIUM TABLET 1 TAB PO (20:18)
[2020-01-18] MEDS: MIRTAZAPINE 15 MG TABLET PO (20:18)
[2020-01-18] MEDS: MELATONIN 5 MG TABLET PO (20:20)
[2020-01-18 22:00] VITALS: BP 150/67; PULSE 74; RESP 18; TEMP 36.3; O2SAT 100
[2020-01-19 06:00] VITALS: BP 126/61; PULSE 82; RESP 17; TEMP 36.3; O2SAT 95
[2020-01-19 09:39] VITALS: PULSE 82
[2020-01-19] MEDS: PANTOPRAZOLE 40 MG TABLET PO (09:39)
[2020-01-19] MEDS: METOPROLOL TARTRATE 25 MG TABLET PO (09:39)
[2020-01-19] MEDS: ASPIRIN 81 MG ENTERIC TABLET PO (09:39)
[2020-01-19] MEDS: lisinopriL 20 MG TABLET PO (09:39)
[2020-01-19] MEDS: MEGESTROL ACETATE (*CHEMO) 40 MG TABLET PO (09:40)
--- NOTE | 2020-01-28 06:19 | DS_ITS ---
DATE OF DISCHARGE: 01/17/2020 DISCHARGE ACUTE REHABILITATION DIAGNOSIS: Category 01, that is a stroke. ETIOLOGICAL DIAGNOSIS: Subacute right middle cerebral artery territorial infarct. DISCHARGE ACTIVE COMORBID CONDITION: 1. Hypertension. 2. Coronary artery disease. 3. Arthritis. 4. Hyperlipidemia. 5. COPD. 6. Current smoker. 7. History of previous stroke as well. REASON FOR ADMISSION: 59 years old right-handed female, presented to [facility] on 12/31/2019, complaining of persistent headache of 10 days duration and worsening left-sided weakness. Radiological investigation documented right middle cerebral artery territorial infarct with the possibility of metastatic tumor as per the report. Neurology team reviewed the films and discussed with the radiologist and they diagnosed luxury perfusion, not really tumor. CT of the chest and pelvis is obtained, was negative for the malignancy. Carotid ultrasound demonstrated hypoechoic feeling at endarterectomy site with ulcer present and heterogeneous plaque. Vascular surgical service was consulted. She was started on anticoagulation therapy. Repeat head CT scan revealed new hemorrhage, where she was taken off the anticoagulation. Plan was to continue to do the carotid endarterectomy in 6-8 weeks. She passed the swallowing study on a regular diet with thin liquids. Continued to have the left-sided weakness and balance difficulties and was advised to come to the rehab. LEVEL OF FUNCTION AT THE TIME OF INITIAL EVALUATION: The patient required setup for eating, oral hygiene, partial assistance for toileting and bathing, setup for upper body dressing, substantial assistance for lower body dressing, partial assistance for footwear, rolling in bed, sit to lying, sit to stand, chair transfer, toilet transfer. She required substantial assistance for lower body dressing, only supervision for lying to sitting, car transfer, walking 10 feet. She was unable to walk 50 feet with 2 turns. She was unable to walk 150 feet. She required only supervision for walking 10 feet on uneven surfaces. Partial assistance for curb or step, supervision for 4 steps, 12 steps, and picking up objects. ANTICIPATED REHAB GOALS AT THE TIME OF ADMISSION: Were to make her independent in all the modalities except require only setup for the 150 feet walking. LEVEL OF FUNCTION AT THE TIME OF DISCHARGE: The patient required only setup for eating and oral hygiene and bathing and lower body dressing, footwear. She required supervision for toileting, upper body dressing. She became independent in rolling in bed, sit to lying, lying to sitting, required setup for the sit to stand, chair transfer, supervision for toilet transfer, partial assistance for curb or step on uneven surfaces, but became independent for car transfer, 10 feet walking, 50 feet walking with 2 turns, 150 feet walking, walking 10 feet on uneven surfaces, 4 steps, 12 steps, picking up objects. HOSPITAL COURSE: During the hospitalization, no other consultants were involved. She was actively involved in the physical therapy and occupational therapy. Her general physical examination and neurological examination remained stable. At the time of discharge, he was able to ambulate 10 feet standby, 50 feet with 2 turn standby, 150 feet contact guard of cane and small base quad. She was able to transfer in and out of chair with standby assistance. She remained afebrile and normotensive. DISCHARGE: At the time of discharge, she was instructed to go on the regular diet. DISCHARGE MEDICATIONS: Included Tylenol 650 mg q.4 hours p.r.n., aspirin 81 mg daily, atorvastatin 40 mg daily at night, hydrocodone with Tylenol 1 tab q.6 hours p.r.n., lisinopril 20 mg daily. Megestrol 40 mg t.i.d., melatonin 5 mg a
== END 2020-01-19 12:15 | disposition home health service (06) | DRG 57 ==
PROVIDERS: Admitting Provider Psychiatry & Neurology Neurology; Visit Provider Psychiatry & Neurology Neurology
DX: I69.354 Hemiplegia and hemiparesis following cerebral infarction affecting left non-dominant side (principal); I69.398 Other sequelae of cerebral infarction; H53.8 Other visual disturbances; E78.5 Hyperlipidemia, unspecified; F17.210 Nicotine dependence, cigarettes, uncomplicated; I25.10 Atherosclerotic heart disease of native coronary artery without angina pectoris; I65.21 Occlusion and stenosis of right carotid artery; I10 Essential (primary) hypertension; J44.9 Chronic obstructive pulmonary disease, unspecified; M19.90 Unspecified osteoarthritis, unspecified site; R01.1 Cardiac murmur, unspecified; F43.21 Adjustment disorder with depressed mood
CPT/HCPCS: 36415; 80048; 81001; 85025; 87081; 92507; 92523; 97110; 97112; 97116; 97129; 97130; 97162; 97166; 97530; 97535; A9270